=== PATIENT | male | born 1940 | race Caucasian/White ===

== ENCOUNTER 2017-09-28 13:06 | Outpatient (CLI) | payer MEDICARE ==
--- NOTE | 2017-09-28 16:23 | PET ---
PET CT FROM SKULL BASE THROUGH MID THIGH: INDICATION: Solitary pulmonary nodule. TECHNIQUE: PET CT images were obtained from the skull base to through the mid thigh following introduction of 12 .46 mCi [id number] IV. CT images were obtained for attenuation correction purposes only. COMPARISON: No comparisons are available. FINDINGS: HEAD/NECK: No hypermetabolic mass or lymphadenopathy is evident within the head/neck region. CHEST: There is a large, 5.9 x 3.6 cm, right infrahilar mass within the right lower lobe with hypermetabolic activity seen along the peripheral margin of the lesion with a peak SUV value of 9.53 and mean value of 7.40. The central area of the mass is not appreciably hypermetabolic, suspicious for area of cent ral necrosis. No hypermetabolic lymphadenopathy is seen within the mediastinal region or axillary reg ion. No additional hypermetabolic pulmonary nodule or pleural effusion is demonstrated. ABDOMEN/PELVIS: No hypermetabolic lymphadenopathy or mass is identified. SKIN/OSSEOUS STRUCTURES: No hypermetabolic skin or osseous lesion is identified. IMPRESSION: 1. Large right infrahilar lower lobe mass suspicious for malignancy. The lesion demonstrates periphe ral regions of hypermetabolic activity suspicious for an area of central necrosis within the mid aspe ct of the lesion itself. 2. No evidence of hypermetabolic metastatic disease. POS: [facility]
== END 2017-09-28 13:07 | disposition home or self-care (01) ==
LOC: PET 13:06
PROVIDERS: ATTEND Internal Medicine
DX: R91.1 Solitary pulmonary nodule (principal)
CPT/HCPCS: 78815; A9552

== ENCOUNTER 2017-11-23 11:03 | Outpatient (CLI) | payer MEDICARE ==
--- NOTE | 2017-11-23 13:32 | RAD ---
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 FINDINGS: There is extensive linear interstitial opacity throughout both lungs suggesting chronic interstitial lung disease. A PET CT performed 09/28/17 demonstrated a 3.7 x 5.9 cm mass within the right lower lobe. On this exa mination, there is new elevation of the right hemidiaphragm and increased density within the medial r ight base. Question interval right lower lobectomy. If the patient is status post right lower lobecto my, the increased density within the medial right lung base may be on the basis of volume loss. Under lying mass lesion cannot be excluded in the proper clinical setting. There is mild patchy opacity in the medial left lung base, which may represent volume loss or mild infiltrate. There are minimally di splaced lateral right 5th and 6th rib fractures. IMPRESSION: 1. Question interval right lower lobectomy. Increased density is seen in the medial right lung base, nonspecific. This could represent volume loss, post-treatment change, or mass lesion. Follow-up advi sed. 2. Patchy opacity in the medial left base, which may represent infiltrate. CODE T. POS: [facility]
== END 2017-11-23 11:04 | disposition home or self-care (01) ==
LOC: RAD 11:03
PROVIDERS: ATTEND Thoracic Surgery (Cardiothoracic Vascular Surgery)
DX: C34.31 Malignant neoplasm of lower lobe, right bronchus or lung (principal); R91.8 Other nonspecific abnormal finding of lung field
CPT/HCPCS: 71045